=== PATIENT | female | born 1980 | race Caucasian/White ===

== ENCOUNTER → 2019-12-20 09:08 | Outpatient (BNVA) | payer OTHER, SELFPAY | PROVIDERS: Family Provider Nurse Practitioner; PCP Nurse Practitioner; Visit Provider Nurse Practitioner | DX: F41.8 Other specified anxiety disorders (principal); M47.22 Other spondylosis with radiculopathy, cervical region; L71.9 Rosacea, unspecified | CPT/HCPCS: 80053; 84443; 85025 ==

== ENCOUNTER → 2020-03-21 08:33 | Outpatient (BNVA) | payer OTHER, SELFPAY | PROVIDERS: Family Provider Nurse Practitioner; PCP Nurse Practitioner; Visit Provider Nurse Practitioner | DX: M47.22 Other spondylosis with radiculopathy, cervical region (principal) | CPT/HCPCS: 80053; 85651 ==

== ENCOUNTER 2020-05-30 09:01 | Outpatient (CLI) | payer OTHER, SELFPAY ==
--- NOTE | 2020-05-30 09:44 | XR_ITS ---
WS: [id number] THORACIC SPINE TECHNIQUE: AP and lateral views are performed. HISTORY: pain COMPARISON: None available. Thoracic vertebra are normally aligned. The interpedicular distances are maintained. No loss of verte bral body height or disc space height. Prior cholecystectomy. XR/XR thoracic spine 3V* [id number] IMPRESSION: Negative thoracic spine radiographs.
== END 2020-05-30 09:02 | disposition home or self-care (01) ==
PROVIDERS: Family Provider Nurse Practitioner; PCP Nurse Practitioner; Visit Provider Family Medicine
DX: M54.6 Pain in thoracic spine (principal)
CPT/HCPCS: 72072

== ENCOUNTER 2020-07-08 09:17 | Outpatient (CLI) | payer OTHER, SELFPAY ==
--- NOTE | 2020-07-08 09:30 | MR_ITS ---
WS: [id number] MRI THORACIC SPINE WITHOUT CONTRAST TECHNIQUE: Sagittal T1, T2 and STIR imaging. Axial T2 imaging. Noncontrast imaging obtained. CLINICAL INFORMATION: M54.6 Pain in thoracic spine COMPARISON: None. FINDINGS: Normal thoracic alignment. No acute compression. No high-grade central canal stenosis. Cord signal is normal. No significant disc extrusions or protrusions. Mild facet arthropathy in the lower thoracic spine. No significant central canal or foraminal narrowing. Normal caliber thoracic aorta. Adrenal glands are normal. Normal caliber thoracic aorta. MR/MR thoracic spin wo con* [id number] IMPRESSION: 1. Mild thoracic curve. No acute compression. No high-grade central canal sten osis. 2. Cord signal is normal. 3. No significant disc extrusions or protrusions. 4. Mild facet arthropathy lower thoracic spine. 5. No significant central canal or foraminal narrowing.
== END 2020-07-08 09:18 | disposition home or self-care (01) ==
LOC: RADSHAW 09:19
PROVIDERS: PCP Family Medicine; Visit Provider Family Medicine
DX: M54.6 Pain in thoracic spine (principal); M47.814 Spondylosis without myelopathy or radiculopathy, thoracic region
CPT/HCPCS: 72146

== ENCOUNTER 2021-12-23 05:24 | Emergency (ER) | payer OTHER, SELFPAY ==
[2021-12-23 05:47] VITALS: BP 118/84; PULSE 80; RESP 18; TEMP 36.5; O2SAT 100; BMI 29.0
--- NOTE | 2021-12-23 05:53 | ED_ITS ---
HPI - COVID General: Chief Complaint: Shortness of Breath/Dyspnea Stated Complaint: Covid Symptoms Time Seen by Provider: 12/23/21 05:47 Source: patient Mode of arrival: ambulatory Limitations: no limitations History of Present Illness: HPI Narrative: 41-year-old female presents to the emergency room with complaint of cough myalgias headache low-grade fever fatigue. She reports her symptoms beginning 10 to 12 days ago. She had negative antigen test through her employer has a level in 3 days later and then another one several days after that the third 1 was finally positive. That was last week Wednesday which would have been 7 days ago. She continues to have typical Covid-like symptoms as outlined above. Patient is not diabetic nor is she hypertensive. MD complaint: has COVID symptoms Prior covid testing: no COVID 19 common symptoms: positive fever(s), chills, cough, non-productive cough, dyspnea, fatigue, body aches, headache(s), nasal congestion and diarrhea; negative throat pain COVID 19 other sytmptoms: negative chest pain Onset (ago): day(s) (-) Severity: mild Pertinent comorbid conditions: obesity Treatment prior to arrival: none COVID Results: No Data to Display Review of Systems Const: Reports: fever(s), chills, body aches and fatigue ENMT: Reports: nasal congestion; Denies: throat pain, ear or mastoid pain or nasal discharge Card: Denies: chest pain, edema, dyspnea on exertion or orthopnea Resp: Reports: dyspnea and non-productive cough GI: Reports: diarrhea : Denies: flank pain, difficulty voiding, dysuria, urinary frequency or urinary urgency Skin/Breast: Denies: rash or pruritus Neuro: Reports: headache(s) PFSH ED PFSH: Medical History (Updated 12/23/21 @ 06:09 by Herberth Miramontes DO) Anxiety with depression Osteoarthritis of spine with radiculopathy, cervical region Rosacea, acne Vitamin D insufficiency Surgical History H/O: hysterectomy Without BSO History of cholecystectomy History of tubal ligation Family History Father Cancer LUNG CAD (coronary artery disease) Diabetes Hypertension Lung disease Social History Second hand smoke exposure: No Smoking risk assessment/counseling performed?: No Alcohol intake: current Alcohol intake frequency: holidays/special occasions only Desire information about alcohol rehabilitation?: No Counseling given: No Desire information about substance/drug rehabilitation?: No Counseling given: No Adopted: No Caregiver/support person: No Lives independently: Yes Household members: spouse Housing: House Marital status: Number of children: 2 service: No Current occupational status: employed Pets and animals: Yes History of recent travel: No Current gender identity: Female Physical Exam Const: GENERAL APPEARANCE: cooperative and comfortable ORIENTATION/CONSCIOUSNESS: Yes awake, Yes oriented to person, Yes oriented to place and Yes oriented to time HENMT: COMMON NORMALS: normocephalic, atraumatic and hearing grossly normal bilaterally HEAD & SCALP: normocephalic and atraumatic Neck/C-Spine: COMMON NORMALS: no JVD Resp: COMMON NORMALS: normal respiratory effort, No retractions, No use of accessory muscles and clear to auscultation bilaterally AUSCULTATION: clear to auscultation bilaterally Cardio: COMMON NORMALS: no JVD, regular rate, regular rhythm and No murmurs present (Cardio) RATE: regular rate RHYTHM: regular rhythm GI: COMMON NORMALS: Soft to palpation and No hepatosplenomegaly present AUSCULTATION: Yes normoactive bowel sounds PALPATION: Yes Soft to palpation, No Tenderness to palpation present (GI), No Guarding due to palpation present (GI) and Yes No hepatosplenomegaly present Extremity: COMMON NORMALS: normal to inspection, capillary refill normal, no c lubbing, cyanosis or edema, no calf tenderness and no pedal edema Neuro: SENSORIUM/ORIENTATION: Yes oriented to person, Yes oriented to place and Yes oriented to time Skin: COMMON NORMALS: no rashes or lesions noted GENERAL SKIN EXAM: no rashes or lesions noted MDM - COVID MDM Narrative Medical decision making narrative: Patient has all the typical symptoms of COVID her exam was normal her lungs sound clear and her oxygen saturations are normal. We will go ahead and discharge her home at this point she is outside the window for monoclonal antibodies based on her reported history. I do not think she would really benefit much from them at this point. Her exam is otherwise normal steroids not indicated and she certainly does not require oxygen. Follow-up with your primary care doctor. Medical Records Attestation: I reviewed the patient's medical records. Lab Data COVID Results: No Data to Display Discharge Plan Discharge Patient Disposition: Home Clinical Impression: COVID-19 Condition: Stable Prescriptions: No Action tizanidine 2 mg capsule 2 mg PO .at bedtime Qty: 30 5RF phentermine [Adipex-P] 37.5 mg capsule 37.5 mg PO DAILY Qty: 30 0RF Rx Instructions: must administer 30 minutes before or 1-2 hours after breakfast rizatriptan [Maxalt-METAL HARDENER] 10 mg tablet,disintegrating See Rx Instructions PO .COMPLEX Qty: 14 3RF Rx Instructions: take 1 tab at onset of headache; if no relief may repeat 1 tab after at least 2 hrs; max = 3 tabs/24 hr PO minocycline 100 mg capsule 100 mg PO QDAY Qty: 30 2RF diclofenac sodium [Voltaren] 1 % gel 2 g topical QID Qty: 100 0RF Rx Instructions: for hand includes palm/fingers/back of hand bupropion HCl [Wellbutrin SR] 200 mg tablet sustained-release 12 hr 200 mg PO BID Qty: 60 4RF hydroxyzine HCl 25 mg tablet 25 mg PO TID PRN (Reason: anxiety) Qty: 60 2RF ibuprofen 800 mg tablet 800 mg PO Q8H Qty: 90 1RF amoxicillin-pot clavulanate [Augmentin] 875-125 mg tablet 1 tab PO BID Qty: 20 0RF Sara-D 24 Hour 180-240 mg tablet extended release 24 hr 1 tab PO DAILY PRN (Reason: nasal congestion) Qty: 20 0RF buspirone 15 mg tablet See Rx Instructions .ROUTE .COMPLEX Qty: 60 3RF Dose Instruction: TAKE ONE TABLET BY MOUTH TWICE DAILY Rx Instructions: TAKE ONE TABLET BY MOUTH TWICE DAILY Discharge Orders: Discharge ED (Routine); Ordered 12/23/21 Ordered By: Herberth Miramontes Referrals: Michelle Castellanos MD [Primary Care Provider] - Patient Instructions: Opioid Safety, COVID-19 (Coronavirus Disease 2019) (ED) Activity Restrictions/Additional Instructions: Maintain self quarantine until your symptoms (fever cough myalgias) have improved for at least 24 hours without the use of any [id number] analgesics Coding Level of Care Code ED [employer] for Amparo Snow
== END 2021-12-23 06:16 | disposition home or self-care (01) ==
PROVIDERS: Emergency Provider Family Medicine; PCP Family Medicine
DX: U07.1 COVID-19 (principal)
CPT/HCPCS: 12345; 99283

== ENCOUNTER 2022-07-24 08:13 | Outpatient (CLI) | payer OTHER, SELFPAY ==
[2022-07-24 09:20] LABS: 25 Hydroxy Vitamin D 27 ng/mL (30-100); Alanine Aminotransferase 17 U/L (0-33); Albumin Level 4.4 g/dL (3.5-5.2); Alkaline Phosphatase 87 U/L (35-105); Anion Gap 10.9 (5-19); Aspartate Amino Transferase 14 U/L (0-32); Blood Urea Nitrogen 12 mg/dL (6-20); Calcium 9.6 mg/dL (8.5-10.5); Carbon Dioxide 28 mmol/L (22-29); Chloride 102 mmol/L (98-107); Chol HDL Ratio 4.67 mg/dL (0.0-4.40); Cholesterol 210 mg/dL (0-200); Globulin 2.8 g/dL (1.3-4.6); Glomerular Filtration Rate 92.2 mL/min (90-130); Glucose 92 mg/dL (65-115); HDL Cholesterol 45 mg/dL (60-100); LDL Cholesterol Calculated 142 mg/dL (50-129); Osmolality Calculated 283 mOsm/kg (285-295); Potassium 3.9 mmol/L (3.5-5.1); Sodium 137 mmol/L (136-145); Thyroid Stimulating Hormone 2.49 uIU/mL (0.27-4.20); Total Bilirubin 0.4 mg/dL (0.15-1.2); Total Protein 7.2 g/dL (6.6-8.7); Triglycerides 114 mg/dL (0-150); VLDL Cholestrol Calculation 23 mg/dL (0-30); Vitamin B12 316 pg/mL (232-1245)
== END 2022-07-24 08:14 | disposition home or self-care (01) ==
LOC: LAB 08:15
PROVIDERS: PCP Family Medicine; Visit Provider Nurse Practitioner
DX: E55.9 Vitamin D deficiency, unspecified (principal); F41.8 Other specified anxiety disorders
CPT/HCPCS: 36415; 80053; 80061; 82306; 82607; 84443

== ENCOUNTER 2022-07-30 08:33 | Outpatient (CLI) | payer OTHER, SELFPAY ==
--- NOTE | 2022-07-30 08:38 | MM_ITS ---
WS: [id number] SCREENING DIGITAL TOMOSYNTHESIS MAMMOGRAM WITH CAD HISTORY: Z12.39 - Encounter for other screening for malignant neoplasm... COMPARISON: 10/20/2017 Bilateral CC and MLO with tomosynthesis views submitted. Synthetic mammography reviewed. Computer aid ed detection analyzed. Breast composition: The breasts are heterogeneously dense, which may obscure small masses. No suspici ous masses, microcalcifications or architectural distortion. Lymph node upper outer quadrant LEFT anayeli ast is stable. Scattered fibroglandular asymmetries bilaterally. No suspicious mass or calcification. MM/[place] [id number] IMPRESSION: BI-RADS: 2-Benign FOLLOW UP: 1 Year Follow-up
== END 2022-07-30 08:34 | disposition home or self-care (01) ==
LOC: RAD 08:37
PROVIDERS: PCP Family Medicine; Visit Provider Nurse Practitioner
DX: Z12.31 Encounter for screening mammogram for malignant neoplasm of breast (principal)
CPT/HCPCS: 77063; 77067

== ENCOUNTER → 2022-12-03 09:36 | Outpatient (BNVA) | payer OTHER, SELFPAY | PROVIDERS: PCP Family Medicine; Visit Provider Nurse Practitioner | DX: M54.6 Pain in thoracic spine (principal); G89.29 Other chronic pain; G43.009 Migraine without aura, not intractable, without status migrainosus; E55.9 Vitamin D deficiency, unspecified; N95.2 Postmenopausal atrophic vaginitis; F41.8 Other specified anxiety disorders; E78.2 Mixed hyperlipidemia | CPT/HCPCS: 80053; 80061; 82306; 82607; 85025 ==

== ENCOUNTER → 2022-12-18 12:03 | Outpatient (BNVA) | payer OTHER, SELFPAY | PROVIDERS: PCP Family Medicine; Visit Provider Nurse Practitioner | DX: L98.9 Disorder of the skin and subcutaneous tissue, unspecified (principal) | CPT/HCPCS: 88304 ==

== ENCOUNTER → 2023-04-01 16:23 | Outpatient (BNVA) | payer OTHER, SELFPAY | PROVIDERS: PCP Family Medicine; Visit Provider Nurse Practitioner | DX: G43.009 Migraine without aura, not intractable, without status migrainosus (principal); F41.8 Other specified anxiety disorders; L71.9 Rosacea, unspecified; B37.9 Candidiasis, unspecified; K59.04 Chronic idiopathic constipation | CPT/HCPCS: 74018 ==